=== PATIENT | female | born 1975 | race Caucasian/White ===

== ENCOUNTER → 2018-04-24 | Outpatient (CLI) | payer BC ==
[2005-05-11 07:00] VITALS: TEMP 96.9
== END ==
LOC: COL.RAD 12:52
DX: N83.291 Other ovarian cyst, right side (principal)

== ENCOUNTER → 2018-05-10 | Outpatient (CLI) | payer BC ==
[2005-05-11 07:00] VITALS: TEMP 96.9
== END ==
LOC: MC.RAD 07:41
DX: Z12.31 Encounter for screening mammogram for malignant neoplasm of breast (principal)

== ENCOUNTER → 2021-11-16 | Outpatient (CLI) | payer BC ==
[2005-05-11 07:00] VITALS: TEMP 96.9
== END ==
LOC: MC.RAD 07:34
DX: Z12.31 Encounter for screening mammogram for malignant neoplasm of breast (principal); R92.0 Mammographic microcalcification found on diagnostic imaging of breast

== ENCOUNTER → 2021-12-02 | Outpatient (CLI) | payer BC ==
[2005-05-11 07:00] VITALS: TEMP 96.9
== END ==
LOC: MC.RAD 10:38
DX: R92.0 Mammographic microcalcification found on diagnostic imaging of breast (principal)

== ENCOUNTER → 2023-12-20 | Outpatient (CLI) | payer BC ==
[2005-05-11 07:00] VITALS: TEMP 96.9
== END ==
LOC: MC.RAD 11:35
DX: Z12.31 Encounter for screening mammogram for malignant neoplasm of breast (principal)